=== PATIENT | male | born 1960 | race Caucasian/White ===

== ENCOUNTER 2022-07-07 09:30 | Inpatient (IN) | payer OTHER ==
[2022-07-07] VITALS (8 sets, daily range): BP systolic 140–177; BP diastolic 65–91
[~2022-07-07] VITALS: Ht 175.3 cm; Wt 93.2 kg
[2022-07-07] MEDS ORDERED: ATOR10TA PO (09:55)
[2022-07-07] MEDS ORDERED: GLIP5TAB12 PO (09:55)
[2022-07-07] MEDS ORDERED: SITA25 PO (09:55)
[2022-07-07] MEDS ORDERED: LOSA-382 PO (09:55)
[2022-07-07] MEDS ORDERED: INSU100I26 SQ ×2 (09:55)
[2022-07-07 10:34] LABS: COVID AG,FIA SOURCE NASAL SWAB
[2022-07-07 10:38] LABS: BASOPHILS % (AUTO) 0.5 % (0.0-2.0); EOSINOPHILS % (AUTO) 0.7 % (1.0-6.0); HEMATOCRIT 41.8 % (41-53); LYMPHOCYTES # (AUTO) 1.6 K/uL (1.0-4.8); MEAN CORPUSCULAR HGB CONC 33.6 G/dL (31.0-37.0); MEAN CORPUSCULAR VOLUME 92 fL (80-100); MONOCYTES # (AUTO) 0.6 K/uL (0.1-1.0); MONOCYTES % (AUTO) 6.2 % (2.0-9.0); NEUTROPHILS # (AUTO) 6.8 K/uL (1.8-7.7); NEUTROPHILS % (AUTO) 74.6 % (40.0-70.0); RED BLOOD CELL COUNT(AUTO) 4.52 MIL/uL (4.50-5.90); RED CELL DISTRIBUTION WIDTH 13.4 % (11.5-14.5)
[2022-07-07 10:43] LABS: B-TYPE NATRIURETIC PEPTIDE 93 pg/mL (0-100)
[2022-07-07 10:47] LABS: PROTHROMBIN TIME 10.7 SEC (9.4-11.6)
[2022-07-07 10:58] LABS: PLATELET COUNT (AUTO) 211 K/uL (150-450)
[2022-07-07 11:00] LABS: ANION GAP 5 mmol/L (8-16); CALCIUM, TOTAL 9.1 mg/dL (8.8-10.5); CARBON DIOXIDE 32 mmol/L (22-29); CHLORIDE 98 mmol/L (98-107); CREATININE 0.99 mg/dL (0.60-1.30); GLUCOSE,RANDOM 248 mg/dL (70-110); SODIUM SERUM 135 mmol/L (136-145); UREA NITROGEN, BLOOD 19 mg/dL (7-18)
[2022-07-07 11:02] LABS: GLOMERULAR FILTR. RATE CALC > 60 mL/min (>60)
[2022-07-07 11:05] LABS: ALANINE AMINOTRANSFERASE 32 U/L (12-78); ALBUMIN 3.9 g/dL (3.4-5.0); ALKALINE PHOSPHATASE 101 U/L (46-116); ASPARTATE AMINOTRANSFERASE 19 U/L (15-37); BILIRUBIN,TOTAL 0.6 mg/dL (0.1-1.0); TOTAL PROTEIN, SERUM 7.6 g/dL (6.4-8.2)
[2022-07-07] MEDS ORDERED: LIDOCAINE/PF 1% 30 ML VIAL ONE (11:15)
[2022-07-07] MEDS ORDERED: IOHEXOL 300 MG/ML 100 ML VIAL ONE ×2 (11:15→11:16)
[2022-07-07] MEDS ORDERED: SODIUM BICARBONATE 50 MEQ/50 ML VIAL ONE (11:15)
[2022-07-07] MEDS ORDERED: HEPARIN SODIUM 1000 UNITS/NS 1,000 ML ONE (11:16)
[2022-07-07 11:22] LABS: APPEARANCE,URINE CLEAR (CLEAR); BILIRUBIN,URINE NEGATIVE (NEGATIVE); GLUCOSE, URINE (UA) 300-500 mg/dL (NEGATIVE); KETONES,URINE TRACE mg/dL (NEGATIVE); LEUKOCYTE ESTERASE ,URINE NEGATIVE (NEGATIVE); NITRATE,URINE NEGATIVE (NEGATIVE); OCCULT BLOOD,URINE NEGATIVE (NEGATIVE); PH,URINE 5.5 (5.0-8.0); PROTEIN,URINE 30-70 mg/dL (NEGATIVE); SPECIFIC GRAVITIY, URINE 1.024 (1.003-1.030); UROBILINOGEN,URINE <=1.0 mg/dL (<=1.0)
[2022-07-07] MEDS ORDERED: SITA50 PO (11:22)
[2022-07-07] MEDS ORDERED: FURO20TA4 PO (11:22)
[2022-07-07] MEDS ORDERED: FERR325T23 PO (11:22)
[2022-07-07] MEDS ORDERED: METH150T PO (11:22)
[2022-07-07] MEDS ORDERED: CARV6.2534 PO (11:22)
[2022-07-07] MEDS ORDERED: GLIP-102 PO (11:22)
[2022-07-07] MEDS ORDERED: INSU100I34 SQ (11:22)
[2022-07-07 11:35] LABS: BACTERIA,URINE None Seen /HPF (None Seen); RBC,URINE None Seen /HPF (0-2); WBC,URINE None Seen /HPF (0-5)
[2022-07-07] MEDS ORDERED: FentaNYL CITRATE PF 100 MCG/2 ML VIAL ONE (11:52)
[2022-07-07] MEDS ORDERED: MIDAZOLAM HCL 2 MG/2 ML VIAL ONE (11:53)
[2022-07-07] MEDS ORDERED: IOHEXOL 300 MG/ML 100 ML VIAL IARTER ONE (12:30)
[2022-07-07] MEDS ORDERED: FentaNYL CITRATE PF 100 MCG/2 ML VIAL IVP ONE (12:30)
[2022-07-07] MEDS ORDERED: LIDOCAINE 1% 30 ML/SOD BICARB 8.4% 4 ML SQ ONE (12:30)
[2022-07-07] MEDS ORDERED: MIDAZOLAM HCL 2 MG/2 ML VIAL IVP ONE (12:30)
[2022-07-07] MEDS ORDERED: HEPARIN SODIUM,PORCINE 1,000 UNITS/ML 10 ML VIAL ONE (12:31)
[2022-07-07] MEDS ORDERED: HEPARIN SODIUM,PORCINE 1,000 UNITS/ML 10 ML VIAL IVP ONE ×2 (12:45)
[2022-07-07] MEDS ORDERED: HEPARIN SODIUM 1000 UNITS/NS 1,000 ML IARTER ONE (13:00)
[2022-07-07] MEDS ORDERED: CLOPIDOGREL BISULFATE 75 MG TABLET PO ONE (13:15)
[2022-07-07] MEDS ORDERED: CLOPIDOGREL BISULFATE 75 MG TABLET ONE (13:16)
[2022-07-07] MEDS ORDERED: DEXTROSE 50%-WATER 25 GM/50 ML SYRINGE IVP PRN (13:45)
[2022-07-07] MEDS ORDERED: ACETAMINOPHEN 325 MG TABLET PO PRN (13:45)
[2022-07-07] MEDS ORDERED: MAGNESIUM HYDROXIDE SUSPENSION 30 ML UDCUP PO PRN (13:45)
[2022-07-07] MEDS ORDERED: OxyCODONE HCL/ACETAMINOPHEN 5-325 MG TABLET PO PRN ×2 (13:45)
[2022-07-07] MEDS ORDERED: ONDANSETRON HCL 4 MG/2 ML VIAL IVP PRN (13:45)
[2022-07-07] MEDS: HEPARIN SODIUM,PORCINE 5,000 UNITS/ML VIAL SQ SCH ×2 (18:49→23:31)
[2022-07-07] MEDS: INSULIN LISPRO 100 UNITS/ML SQ PRN ×2 (19:16→20:46)
[2022-07-07 20:21] LABS: GLUCOMETER DEV NAME(LOC) 5S.1B; GLUCOSE,POINT OF CARE 358 MG/DL (70-110)
[2022-07-07] MEDS: FAMOTIDINE 20 MG TABLET PO SCH (20:48)
[2022-07-07] MEDS: CARVEDILOL 6.25 MG TABLET PO SCH (20:48)
[2022-07-07] MEDS: DOCUSATE SODIUM 100 MG CAPSULE PO SCH (20:50)
[2022-07-07] MEDS ORDERED: INSULIN GLARGINE,HUM.REC.ANLOG 100 UNITS/ML SQ SCH (21:00)
[2022-07-07] MEDS ORDERED: PNEUMOCOCCAL VACCINE POLYVALENT 0.5 ML VIAL [PPSV23] IM. ONE (21:30)
[2022-07-08] VITALS: BP 134/68
[2022-07-08 04:00] VITALS: BP 145/80
[2022-07-08 08:06] VITALS: BP 137/76
[2022-07-08 08:21] LABS: GLUCOMETER DEV NAME(LOC) 5S.1B; GLUCOSE,POINT OF CARE 229 MG/DL (70-110)
[2022-07-08 08:22] LABS: GLUCOMETER DEV NAME(LOC) 5S.1B; GLUCOSE,POINT OF CARE 121 MG/DL (70-110)
[2022-07-08] MEDS ORDERED: ASPIRIN 81 MG CHEWABLE TABLET PO SCH (09:00)
[2022-07-08] MEDS ORDERED: ATORVASTATIN CALCIUM 40 MG TABLET PO SCH (09:00)
[2022-07-08] MEDS ORDERED: CLOPIDOGREL BISULFATE 75 MG TABLET PO SCH ×2 (09:00)
[2022-07-08] MEDS: HEPARIN SODIUM,PORCINE 5,000 UNITS/ML VIAL SQ SCH (09:57)
[2022-07-08] MEDS: DOCUSATE SODIUM 100 MG CAPSULE PO SCH (09:57)
[2022-07-08] MEDS: FAMOTIDINE 20 MG TABLET PO SCH (09:57)
[2022-07-08] MEDS: CARVEDILOL 6.25 MG TABLET PO SCH (09:59)
[2022-07-08 12:36] LABS: GLUCOMETER DEV NAME(LOC) 5S.1B; GLUCOSE,POINT OF CARE 259 MG/DL (70-110)
[2022-07-08] MEDS: INSULIN LISPRO 100 UNITS/ML SQ PRN (12:53)
[2022-07-08] MEDS ORDERED: CLOP75TA60 PO (13:12)
== END 2022-07-08 13:20 | disposition home or self-care (01) | DRG 182 ==
LOC: EMS 09:35 → 5S 11:10 → EMS 11:44 → AHU 13:11 → 5S 17:00
PROVIDERS: ADMIT Internal Medicine; ATTEND Internal Medicine
PROC: 04CN3ZZ Extirpation of Matter from Left Popliteal Artery, Percutaneous Approach (ICD-10-PCS; principal; 2022-07-07)
PROC: B41D1ZZ Fluoroscopy of Aorta and Bilateral Lower Extremity Arteries using Low Osmolar Contrast (ICD-10-PCS; 2022-07-07)
PROC: 047N3Z1 Dilation of Left Popliteal Artery using Drug-Coated Balloon, Percutaneous Approach (ICD-10-PCS; 2022-07-07)
PROC: 047D3ZZ Dilation of Left Common Iliac Artery, Percutaneous Approach (ICD-10-PCS; 2022-07-07)
PROC: 047C3ZZ Dilation of Right Common Iliac Artery, Percutaneous Approach (ICD-10-PCS; 2022-07-07)
PROC: B41C1ZZ Fluoroscopy of Pelvic Arteries using Low Osmolar Contrast (ICD-10-PCS; 2022-07-07)
DX: E11.51 Type 2 diabetes mellitus with diabetic peripheral angiopathy without gangrene (principal); E11.40 Type 2 diabetes mellitus with diabetic neuropathy, unspecified; I10 Essential (primary) hypertension; E66.9 Obesity, unspecified; I25.10 Atherosclerotic heart disease of native coronary artery without angina pectoris; E78.5 Hyperlipidemia, unspecified; Z20.822 Contact with and (suspected) exposure to COVID-19; Z95.5 Presence of coronary angioplasty implant and graft; Z79.899 Other long term (current) drug therapy; Z68.30 Body mass index [BMI] 30.0-30.9, adult; Z79.82 Long term (current) use of aspirin; I70.212 Atherosclerosis of native arteries of extremities with intermittent claudication, left leg; I70.201 Unspecified atherosclerosis of native arteries of extremities, right leg
CPT/HCPCS: 36200; 37229; 71045; 75630; 75716; 75962; 80053; 81001; 82962; 83880; 84484; 85025; 85610; 85730; 93005; 99285; C1724; C2623; G0378; J1644; J1815; J2250; J3010; J3490; Q9967; 36415-L1; 36415-TC